=== PATIENT | female | born 1990 | race Caucasian/White ===

== ENCOUNTER 2019-04-06 22:20 | Inpatient (IN) | payer OTHER ==
[2019-04-07] MEDS ORDERED: DEXTROSE 5%-LACTATED RINGERS 1,000 ML IV ONE (02:00)
[2019-04-07 04:05] LABS: BASO % 0.6 % (0-2.0); EOS % 1.1 % (0-4.5); HEMOGLOBIN 11.3 GM/dL (10.7-15.3); LYMPH % 22.6 % (8-40); MCH 28.8 pg (25.7-33.7); MCHC 32.3 g/dl (32.0-36.0); MEAN CELL VOLUME 89.3 fl (80-96); MEAN PLT VOLUME 8.6 fl (7.5-11.1); MONO % 6.7 % (3.8-10.2); PLATELET COUNT 306 K/MM3 (134-434); RBC 3.92 M/mm3 (3.60-5.2); RDW 13.9 % (11.6-15.6); WHITE BLOOD COUNT 15.3 K/mm3 (4.0-10.0)
[2019-04-07 04:25] LABS: COCAINE, UR NEGATIVE ng/ml (CUTOFF=300); METHADONE, UR NEGATIVE ng/ml (CUTOFF=300); OPIATES, URI NEGATIVE ng/ml (CUTOFF=300); PHENCYCLIDINE,URINE NEGATIVE ng/ml (CUTOFF=25); URINE AMPHETAMINES NEGATIVE ng/ml (CUTOFF=500); URINE BARBITURATES NEGATIVE ng/ml (CUTOFF=200); URINE BENZODIAZEPINES NEGATIVE ng/ml (CUTOFF=200)
[2019-04-07 04:34] LABS: BLOOD UREA NITROGEN 8.5 mg/dL (7-18); CALCIUM 9.1 mg/dL (8.5-10.1); CREATININE 0.5 mg/dL (0.55-1.3); POTASSIUM 3.9 mmol/L (3.5-5.1)
[2019-04-07 05:19] LABS: INR 0.92 (0.83-1.09); PROTHROMBIN TIME (PATIENT) 10.8 SEC (9.7-13.0)
[2019-04-07 05:21] LABS: ACTIVATED PTT 31.8 SECONDS (25.2-36.5)
[2019-04-07 05:32] VITALS: BMI 25.7
[2019-04-07 08:43] LABS: POC NITRAZINE NEG
[2019-04-07] MEDS ORDERED: BUTORPHANOL TARTRATE 2 MG/ML VIAL IVPUSH PRN (09:56)
--- NOTE | 2019-04-07 09:56 | HP ---
Past Medical History - Admission Chief Complaint: Leakage od fluid History of Present Illness: 28 yo , @ 40 weeks gestation, EDC 04/03/19, admitted for leakage of fluid. Upon admission she was she was 2cm dilated. History Source: Patient Limitations to Obtaining History: No Limitations - Past Medical History ...: 2 ...Para: 0 ...Term: 0 ...: 0 ...Spon : 1 ...Induced : 0 ...Multiple Gestation: 0 ...LMP: 07/28/18 ... Weeks Gestation by Dates: 40.4 ...EDC by Dates: 04/03/19 - Past Surgical History Past Surgical History: Yes: None Hx Myomectomy: No Hx Transabdominal Cerclage: No - Smoking History Smoking history: Former smoker If you are a former smoker, when did you quit?: 08/05 - Alcohol/Substance Use Hx Alcohol Use: No - Social History Usual Living Arrangement: Yes: With Significant Other History of Recent Travel: No Home Medications - Allergies Allergies/Adverse Reactions: Allergies Allergy/AdvReac Type Severity Reaction Status Date / Time No Known Allergies Allergy Verified 04/07/19 05:54 - Home Medications Home Medications: Ambulatory Orders Vitamins (Sjr) - 1 tab PO DAILY 04/07/19 Family Medical History Family History: Unremarkable Review of Systems - Review of Systems Constitutional: reports: No Symptoms Eyes: reports: No Symptoms HENT: reports: No Symptoms Neck: reports: No Symptoms Cardiovascular: reports: No Symptoms Respiratory: reports: No Symptoms Gastrointestinal: reports: No Symptoms Genitourinary: reports: Pain Breasts: reports: No Symptoms Reported Musculoskeletal: reports: No Symptoms Integumentary: reports: No Symptoms Neurological: reports: No Symptoms Endocrine: reports: No Symptoms Hematology/Lymphatic: reports: No Symptoms Psychiatric: reports: No Symptoms Pain Intensity: 5 Physical Exam - Maternity Vital Signs: Vital Signs Temperature 98.7 F 04/07/19 08:00 Pulse Rate 89 04/07/19 09:00 Respiratory Rate 18 04/07/19 09:00 Blood Pressure 113/58 L 04/07/19 09:00 O2 Sat by Pulse Oximetry (%) Constitutional: Yes: Well Nourished Eyes: Yes: Conjunctiva Clear HENT: Yes: Atraumatic Neck: Yes: Supple Cardiovascular: Yes: Regular Rate and Rhythm Lungs: Clear to auscultation Breast(s): Yes: WNL - Abdominal Exam/OB Number of Fetuses: Single Presentation: Vertex Contractions: Yes Regularity: Regular Intensity: Mild/Mod - Physical Exam ...Motor Strength: WNL Psychiatric: Yes: Alert, Oriented - Labs Lab Results: CBC, BMP 04/07/19 02:45 04/07/19 02:45 Problem List - Problems (1) Spontaneous rupture of amniotic membranes Problems reviewed: Yes Code(s): OQE5461 - (2) 40 weeks gestation of Problems reviewed: Yes Code(s): Z3A.40 - 40 WEEKS GESTATION OF Assessment/Plan 40 weeks gestation Spontanous rupture of membrane Admit to L&D analgesia as needed Anticipate
[2019-04-07] MEDS ORDERED: PROMETHAZINE HCL 25 MG/1 ML VIAL IVPB PRN (09:57)
[2019-04-07] MEDS ORDERED: BUTORPHANOL TARTRATE 1 MG/ML VIAL ONE (13:33)
[2019-04-07] MEDS ORDERED: PROMETHAZINE HCL 25 MG/1 ML VIAL ONE (13:33)
[2019-04-07] MEDS ORDERED: OXYTOCIN 30 UNITS in 0.9% NS 30 UNIT/500 ML INFUS.BAG IVPB ONE (14:43)
[2019-04-07] MEDS ORDERED: BISACODYL 10 MG SUPP.RECT RC PRN (15:34)
[2019-04-07] MEDS ORDERED: BENZOCAINE 28 GM HEMORRHOIDAL OINTMENT TP PRN (15:34)
[2019-04-07] MEDS ORDERED: WITCH HAZEL 50% (TUCKS) 40 PAD/JAR PAD TP PRN (15:34)
[2019-04-07] MEDS ORDERED: METHYLERGONOVINE MALEATE 0.2 MG/1 ML AMP IM PRN (15:34)
[2019-04-07] MEDS ORDERED: BENZOCAINE 20% 57 GM BOTTLE TP PRN (15:34)
--- NOTE | 2019-04-07 15:38 | PN ---
Delivery - Delivery Vaginal Delivery: Spontaneous Type of Anesthesia: Local Episiotomy/Laceration: 2nd degree EBL (cc): 300 Delivery, Single - Feeding Plan Initial Plan: Elected not to breastfeed exclusively throughout hospitalization Remarks - Remarks Remarks: Normal spontaneous vaginal delivery of a live infant girl over second degree laceration. Nose / Oropharynx suctioned @ perineum. Cord clamped and cut. Baby handed to nurse. Placenta expelled spontaneously intact. Laceration repaired with 2.0 Chromic and 2.0 Biosyn. Mother in stable condition
[2019-04-07] MEDS ORDERED: OXYTOCIN 20 UNITS in 0.9% NS 20 UNIT/1,000 ML INFUS.BAG IV SCH (15:45)
[2019-04-07] MEDS: IBUPROFEN 600 MG TABLET (FP) PO PRN (17:19)
[2019-04-07] MEDS: ACETAMINOPHEN 325 MG TABLET (FP) PO PRN (17:19)
[2019-04-07] MEDS: FERROUS SO4 325 MG TABLET (FP) PO SCH (21:54)
[2019-04-07] MEDS: SENNOSIDES/DOCUSATE COMBO (SENNA PLUS) TABLET (UD) PO PRN (21:54)
[2019-04-08 07:26] LABS: BASO % 0.2 % (0-2.0); EOS % 0.3 % (0-4.5); HEMATOCRIT 30.6 % (32.4-45.2); LYMPH % 16.8 % (8-40); MCH 28.7 pg (25.7-33.7); MCHC 32.8 g/dl (32.0-36.0); MEAN CELL VOLUME 87.6 fl (80-96); MEAN PLT VOLUME 8.2 fl (7.5-11.1); MONO % 7.9 % (3.8-10.2); NEUT % 74.8 % (42.8-82.8); PLATELET COUNT 306 K/MM3 (134-434); RDW 14.2 % (11.6-15.6); WHITE BLOOD COUNT 20.4 K/mm3 (4.0-10.0)
--- NOTE | 2019-04-08 07:36 | PN ---
Post Progress Note - Subjective Subjective: 28 yo Para 1 status post vaginal delivery, seen and evaluated. Doing well. Post Day: 1 Type of Delivery: Vital Signs: Vital Signs Temperature 98.4 F 04/08/19 04:00 Pulse Rate 82 04/08/19 04:00 Respiratory Rate 20 04/08/19 04:00 Blood Pressure 123/78 04/08/19 04:00 O2 Sat by Pulse Oximetry (%) Breast Exam: Yes: Soft Uterus: Yes: Fundus Firm Abdomen/GI: Yes: Abdomen soft, Tolerating PO Lochia: Yes: Rubra Lochia, amount: Moderate Extremities: Yes: Calves non-tender Perineum: Yes: Laceration (healing) Activity: Ambulating - Labs Labs: CBC WBC 15.3 K/mm3 (4.0-10.0) H 04/07/19 02:45 RBC 3.92 M/mm3 (3.60-5.2) 04/07/19 02:45 Hgb 11.3 GM/dL (10.7-15.3) 04/07/19 02:45 Hct 35.0 % (32.4-45.2) 04/07/19 02:45 MCV 89.3 fl (80-96) 04/07/19 02:45 MCH 28.8 pg (25.7-33.7) 04/07/19 02:45 MCHC 32.3 g/dl (32.0-36.0) 04/07/19 02:45 RDW 13.9 % (11.6-15.6) 04/07/19 02:45 Plt Count 306 K/MM3 (134-434) 04/07/19 02:45 MPV 8.6 fl (7.5-11.1) 04/07/19 02:45 Absolute Neuts (auto) 10.6 K/mm3 (1.5-8.0) H 04/07/19 02:45 Neutrophils % 69.0 % (42.8-82.8) 04/07/19 02:45 Lymphocytes % 22.6 % (8-40) 04/07/19 02:45 Monocytes % 6.7 % (3.8-10.2) 04/07/19 02:45 Eosinophils % 1.1 % (0-4.5) 04/07/19 02:45 Basophils % 0.6 % (0-2.0) 04/07/19 02:45 Nucleated RBC % 0 % (0-0) 04/07/19 02:45 Problem List - Problems (1) Spontaneous rupture of amniotic membranes Problems reviewed: Yes Code(s): ISY1357 - (2) 40 weeks gestation of Problems reviewed: Yes Code(s): Z3A.40 - 40 WEEKS GESTATION OF (3) Status post normal vaginal delivery Problems reviewed: Yes Code(s): TKO4258 - Assessment/Plan Status post vaginal delivery Stable Continue routine care
[2019-04-08] MEDS ORDERED: PNEUMOCOCCAL 23 VACCINE 0.5 ML VIAL IM ONE (10:00)
[2019-04-08] MEDS ORDERED: PNEUMOC 13-VAL CONJ-DIP CRM/PF 0.5 ML DISP.SYRIN IM ONE (10:00)
[2019-04-08] MEDS ORDERED: DIPHTH,PERTUSS(ACELL),TET 0.5 ML DISP.SYRIN IM ONE (10:00)
[2019-04-08] MEDS: FERROUS SO4 325 MG TABLET (FP) PO SCH ×2 (11:30→21:40)
[2019-04-08] MEDS: PRENATAL VITAMINS W/ FOLIC ACID TABLET (FP) PO SCH (11:31)
[2019-04-08 13:12] LABS: PLATELET ESTIMATE ADEQUATE
[2019-04-08] MEDS: IBUPROFEN 600 MG TABLET (FP) PO PRN (21:39)
[2019-04-08] MEDS: ACETAMINOPHEN 325 MG TABLET (FP) PO PRN (21:39)
[2019-04-08] MEDS: SENNOSIDES/DOCUSATE COMBO (SENNA PLUS) TABLET (UD) PO PRN (21:40)
[2019-04-09] MEDS: IBUPROFEN 600 MG TABLET (FP) PO PRN (07:42)
[2019-04-09] MEDS: ACETAMINOPHEN 325 MG TABLET (FP) PO PRN (07:42)
[2019-04-09] MEDS: PRENATAL VITAMINS W/ FOLIC ACID TABLET (FP) PO SCH (09:54)
[2019-04-09] MEDS: FERROUS SO4 325 MG TABLET (FP) PO SCH (09:54)
[2019-04-09 10:43] VITALS: BP 108/74; PULSE 74; TEMP 98.4
[2019-04-09] MEDS ORDERED: CEFAZOLIN 2 GM/D5W 2 GM/50 ML ML IVPB ONE (10:53)
--- NOTE | 2019-04-09 10:58 | DS ---
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: Vital Signs Temperature 98.4 F 04/09/19 10:00 Pulse Rate 74 04/09/19 10:00 Respiratory Rate 18 04/09/19 10:00 Blood Pressure 108/74 04/09/19 10:00 O2 Sat by Pulse Oximetry (%) Constitutional: No: No Distress Eyes: Yes: Conjunctiva Clear HENT: Yes: Atraumatic Neck: Yes: Supple, Trachea Midline Cardiovascular: Yes: Regular Rate and Rhythm Respiratory: Yes: Regular Vaginal Exam: Yes: Normal Cervix: Yes: Normal Uterus: Yes: Firm ....Post : Yes: Uterus firm, Moderate lochia serosa Extremities: Yes: WNL Neurological: Yes: Alert, Oriented ...Motor Strength: WNL Psychiatric: Yes: Alert, Oriented Labs: CBC, BMP 04/08/19 06:29 04/07/19 02:45 Delivery - Delivery Vaginal Delivery: Spontaneous Type of Anesthesia: Local Episiotomy/Laceration: 2nd degree EBL (cc): 300 Delivery, Single - Stages of Labor Date 1st Stage Initiatied: 04/07/19 Time 1st Stage Initiated: 06:00 Date 2nd Stage Initiated: 04/07/19 Time 2nd Stage Initiated: 15:10 Time Placenta Delivered: 15:25 - 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 Health Concerns: None Plan of Treatment: Ambulation Analgesia as needed F/U with MD in 6 weeks or as needed. Goals: Resume normal activities in 6 weeks Condition: Good - Instructions Diet, Activity, Other Instructions: Regular diet No douching, no sexual intercourse x 6 weeks F/U with MD in 6 weeks Disposition: HOME - Home Medications Comprehensive Discharge Medication List: Ambulatory Orders Vitamins (Sjr) - 1 tab PO DAILY 04/07/19
== END 2019-04-09 15:45 | disposition home or self-care (01) | DRG 560 ==
LOC: JDEL 22:20 → JLDR 04-07 02:00 → J3W 04-07 17:14
PROVIDERS: ADMIT Obstetrics & Gynecology; ATTEND Obstetrics & Gynecology
PROC: 10E0XZZ Delivery of Products of Conception, External Approach (ICD-10-PCS; principal; 2019-04-07)
PROC: 0KQM0ZZ Repair Perineum Muscle, Open Approach (ICD-10-PCS; 2019-04-07)
DX: O48.0 Post-term pregnancy (principal); O70.1 Second degree perineal laceration during delivery; Z3A.40 40 weeks gestation of pregnancy; Z37.0 Single live birth
CPT/HCPCS: 36415; 59409; 80048; 80307; 83986-QW; 85025; 85461; 85610; 85730; 86593; 86762; 86850; 86900; 86901; 86999